=== PATIENT | female | born 1965 | race Caucasian/White ===

== ENCOUNTER 2017-09-09 18:12 | Emergency (ER) | payer OTHER ==
[~2017-09-09] VITALS: Ht 152.4 cm; Wt 83.9 kg
[2017-09-09 19:10] LABS: ABSOLUTE BASOPHIL COUNT 0 /CUMM (0.0-0.2); ABSOLUTE EOSINOPHIL COUNT 0.2 /CUMM (0.0-0.7); ABSOLUTE GRANULOCYTE CT 3.5 /CUMM (1.4-6.5); ABSOLUTE LYMPH COUNT 2.3 /CUMM (1.2-3.4); ABSOLUTE MONOCYTE COUNT 0.6 /CUMM (0.10-0.60); BASOPHIL % 0.5 % (0.0-2.0); EOSINOPHIL % 2.6 % (0-5); GRANULOCYTE % 53.2 % (42.2-75.2); HEMATOCRIT 39.9 % (37-47); MEAN CORPUSCULAR HGB 28.5 PG (27.0-31.0); MEAN CORPUSCULAR VOLUME 86.5 FL (81.0-99.0); MEAN PLATELET VOLUME 7.9 FL (7.4-10.4); PLATELET COUNT 251 /CUMM (130-400); RBC DISTRIBUTION WIDTH 13.6 % (11.5-14.5); RED BLOOD CELL CT 4.61 /CUMM (4.20-5.40); WHITE BLOOD CELL COUNT 6.7 /CUMM (4.8-10.8)
--- NOTE | 2017-09-09 20:05 | ED CARDIAC/CP/PALPITATIONS ---
History of Present Illness General Chief Complaint: Chest Pain Stated Complaint: HIGH BLOOD PRESSURE, CHEST PAIN Source: patient, old records Exam Limitations: no limitations Vital Signs & Intake/Output Vital Signs & Intake/Output Vital Signs Date Time Temp Pulse Resp B/P B/P Pulse O2 O2 Flow FiO2 Mean Ox Delivery Rate 09/090 97.2 52 18 141/77 97 Room Air 09/09 1900 97.6 09/09 1826 97.6 66 18 170/96 97 Room Air Room Air Allergies Coded Allergies: morphine (Intermediate, RASH AND PUFFY 09/09/17) Reconcile Medications Amlodipine Besylate 10 MG TABLET 1 TAB PO DAILY BP (Reported) Bupropion HCl (Bupropion XL) 150 MG TAB.ER.24H 1 TAB PO QAM MENTAL HEALTH ( Reported) Citalopram Hydrobromide (Citalopram HBr) 40 MG TABLET 1 TAB PO DAILY MENTAL HEALTH (Reported) Valsartan 320 MG TABLET 1 TAB PO DAILY BP (Reported) Triage Note: EKG DONE, PT TO ED WITH C/O HTN AND LEFT CHEST PAIN, DR CONDE HAS BEEN MONITORING BP SINCE TUESDAY, ALSO C/O HEADACHE. Triage Nurses Notes Reviewed? yes Onset: Abrupt Duration: hour(s): (6), constant Timing: recent history Quality/Severity: mild, aching Location: substernal Radiation: no radiation Activities at Onset: none Prior Chest Pain/Card Workup: no prior chest pain Nitro Today/Relief: no nitro taken today Aspirin Today: 81 mg x 1 Associated Symptoms: DENIES HPI: 51-year-old female history of hypertension anxiety presents to ER complaining since 1:30 today she's had a dull aching sensation 4 out of 10 to the left chest nonradiating. Patient is on amlodipine and valsartan for blood pressure symptoms came on while at work today at rest. She states while waiting room the symptoms had resolved however walking back to room 60 symptoms came back. She denies any associated shortness of breath or pain with inspiration. No abdominal pain nausea vomiting diarrhea dizziness lightheadedness. She took a baby aspirin prior to arrival. No family history of cigarette disease that she is aware she denies tobacco alcohol use. Past History Travel History Traveled to [place] past 21 day No Medical History Any Pertinent Medical History? 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 No Review of Systems Review of Systems Constitutional: Reports: see HPI. Comments Review of systems: See HPI, All other systems negative. Constitutional, no chills no fever, HEENT: no sore throat no congestion, Cardiovascular: chest pain , no palpitation Skin: no rashes, no change in skin Respiratory: No dyspnea no cough no sputum GI: No nausea no vomiting, no diarrhea, no bloating/constipation : No dysuria Muscle skeletal: No joint pain, no back pain, no neck pain, Neurologic: no headache Psych: stress Heme/endocrine: No bruising Immunology: No lymphadenopathy Physical Exam Physical Exam General Appearance: well developed/nourished, no apparent distress, alert, awake , comfortable Cardiovascular: regular rate/rhythm Comments: Well-developed well-nourished person in no acute distress HEENT: Normal EENT exam; PERRL, EOMI, HEAD is atraumatic. moist mucous membranes. Neck: Supple, no lymphadenopathy, normal range of motion Back: Nontender, no CVA tenderness. Full range of motion Cardiovascular: Regular rate and rhythms no murmurs rubs or gallops, normal JVP Respiratory: Chest nontender.There were no bony deformities, no asymmetry. No respiratory distress. Patient speaking in full complete sentences. Breath sounds clear to auscultation bilaterally: NO W/R/R Abdomen: Soft, nontender nondistended Extremity: No edema, full range of motion of extremities Neuro: Alert oriented x3, motor sensory normal, There were no obvious focal neurologic abnormalities. Skin: No appreciable rash on exposed skin, skin is warm and dry. Psych: Mood and affect is normal, memory and judgment is normal. Core Measures ACS in differential dx? Yes CVA/TIA Diagnosis No Sepsis Present: No Sepsis Focused Exam Completed? No Progress Differential Diagnosis: AMI, aortic dissection, atrial fibrillation, cholecystitis, CHF/pulm edema, musculoskeletal pain, myocarditis, pericarditis, pneumonia, pneumothorax, pulmonary embolism, unstable angina Plan of Care: Orders Procedure Date/time Status TROPONIN LEVEL 09/09 2129 Complete EKG 09/09 2129 Active Add-on Test (ER Only) 09/09 2104 Active EKG 09/09 2031 Active Telemetry/Associate Professor Of Biblical Studies 09/09 2017 Active D-DIMER 09/09 1829 Complete TROPONIN LEVEL 09/09 1814 Complete COMPREHENSIVE METABOLIC PANEL 09/09 1814 Complete CBC WITHOUT DIFFERENTIAL 09/09 1814 Complete EKG 09/09 1814 Active Laboratory Tests 09/09/17 2145: Troponin I < 0.01 09/09/171829: Anion Gap 13, Estimated GFR 59 L, BUN/Creatinine Ratio 20.0, Glucose 89, Calcium 9.5, Total Bilirubin 0.3, AST 20, ALT 31, Alkaline Phosphatase 136 H, Troponin I < 0.01, Total Protein 7.8, Albumin 4.5, Globulin 3.3, Albumin/ Globulin Ratio 1.4, D-Dimer High Sensitivty < 200, CBC w Diff NO MAN DIFF REQ, RBC 4.61, MCV 86.5, MCH 28.5, MCHC 33.0, RDW 13.6, MPV 7.9, Gran % 53.2, Lymphocytes % 35.3, Monocytes % 8.4, Eosinophils % 2.6, Basophils % 0.5, Absolute Granulocytes 3.5, Absolute Lymphocytes 2.3, Absolute Monocytes 0.6, Absolute Eosinophils 0.2, Absolute Basophils 0 Labs ordered old records. Patient medicated with nitroglycerin with no improvement in symptoms upon further evaluation she states the pain is now 7 out of 10 and repeat EKG shows no acute changes we'll continue to monitor case discussed with Dr. Aponte agrees with plan Patient medicated with a Percocet with improvement in symptoms On repeat evaluation I discussed with her at length all of her labs pending repeat troponin and d-dimer is negative. Patient reports total resolution of symptoms she is ambulatory around the emergency room with steady gait without redeveloping pain. 2250 and discussed with the patient at length all of her lab results she is remained asymptomatic here she is able toward on the emergency room without reproduction of symptoms I discussed her plan of care. She will follow up with cardiology on Tuesday return precautions were discussed at length Diagnostic Imaging: Viewed by Me: Radiology Read. Discussed w/RAD: Radiology Read. Radiology Impression: PATIENT: MARK FIGUEROA PRESENT AGE: 51 PATIENT ACCOUNT NO: [id number] : 66 LOCATION: [facility] ORDERING PHYSICIAN: Jose PARDO SERVICE DATE: 09/09/17 EXAM TYPE: RAD - XRY- PORTABLE CHEST XRAY EXAMINATION: XR PORTABLE CHEST CLINICAL INFORMATION: Chest pain. COMPARISON: None TECHNIQUE: Portable frontal view of the chest was obtained. FINDINGS: No significant abnormality is noted involving the heart, lungs, mediastinum, bony thorax or soft tissues. IMPRESSION: Unremarkable examination. Cardiac silhouette within normal limits DICTATED BY: Scottie Coronado MD DATE/TIME DICTATED:09/09/172037 RECEIVING SPECIALIST:SOFIA DATE/TIME TRANSCRIBED:09/09/172037 CONFIDENTIAL, DO NOT COPY WITHOUT APPROPRIATE AUTHORIZATION. <Electronically signed in Other Vendor System> SIGNED BY: Scottie Coronado MD 09/09/172043 Initial ED EKG: normal intervals, normal p-waves, normal QRS complex, normal sinus rhythm (60) Prior EKG: unchanged Repeat EKG: unchanged Rhythm Strip: normal sinus rhythm Departure Departure Time of Disposition: 2250 Disposition: HOME OR SELF CARE Condition: Stable Clinical Impression Primary Impression: Chest pain Referrals: Aidan PINEDO,Deyanira (PCP/Family) Janell PINEDO PHD,Maynor Merrill Additional Instructions: Follow up with commercial counsel dr ortiz on tuesday. continue taking your medication as prescribed. return with any concerns Departure Forms: Customer Survey General Discharge Information Critical Care Note Critical Care Note Critical Care Time: non-applicable
--- NOTE | 2017-09-09 20:44 | RADIOLOGY REPORT ---
EXAMINATION: XR PORTABLE CHEST CLINICAL INFORMATION: Chest pain. COMPARISON: None TECHNIQUE: Portable frontal view of the chest was obtained. FINDINGS: No significant abnormality is noted involving the heart, lungs, mediastinum, bony thorax or soft tissues. IMPRESSION: Unremarkable examination. Cardiac silhouette within normal limits
[2017-09-09] MEDS ORDERED: BUPROPION XL150 MG PO (21:06)
[2017-09-09] MEDS ORDERED: CITALOPRAM HBR40 MG PO (21:06)
[2017-09-09] MEDS ORDERED: AMLODIPINE BESY10 M1 PO (21:06)
[2017-09-09] MEDS ORDERED: VALSARTAN320 M1 PO (21:06)
[2017-09-09 21:50] VITALS: BP 141/77
== END 2017-09-09 22:56 ==
LOC: ERH 18:12
PROVIDERS: Physician Assistant Medical
DX: R07.9 Chest pain, unspecified (principal)
CPT/HCPCS: 71045; 93005; 93010; J3101; J3490

== ENCOUNTER 2017-09-17 15:13 | Emergency (ER) | payer OTHER ==
[~2017-09-17] VITALS: Ht 152.4 cm; Wt 84.4 kg
[~2017-09-17 15:13] MED LIST: AMLODIPINE BESY10 M1 PO; BUPROPION XL150 MG PO; CITALOPRAM HBR40 MG PO; VALSARTAN320 M1 PO
[2017-09-17 16:03] LABS: ABSOLUTE BASOPHIL COUNT 0 /CUMM (0.0-0.2); ABSOLUTE EOSINOPHIL COUNT 0.1 /CUMM (0.0-0.7); ABSOLUTE GRANULOCYTE CT 3.9 /CUMM (1.4-6.5); ABSOLUTE LYMPH COUNT 2.9 /CUMM (1.2-3.4); ABSOLUTE MONOCYTE COUNT 0.5 /CUMM (0.10-0.60); BASOPHIL % 0.5 % (0.0-2.0); EOSINOPHIL % 1.8 % (0-5); MEAN CORPUSCULAR HGB 29.5 PG (27.0-31.0); MEAN CORPUSCULAR HGB CONC 34.5 G/DL (33.0-37.0); MEAN CORPUSCULAR VOLUME 85.7 FL (81.0-99.0); MEAN PLATELET VOLUME 7.5 FL (7.4-10.4); PLATELET COUNT 257 /CUMM (130-400); RBC DISTRIBUTION WIDTH 13.6 % (11.5-14.5); RED BLOOD CELL CT 4.68 /CUMM (4.20-5.40); WHITE BLOOD CELL COUNT 7.6 /CUMM (4.8-10.8)
--- NOTE | 2017-09-17 18:10 | ED CARDIAC/CP/PALPITATIONS ---
History of Present Illness General Chief Complaint: Chest Pain Stated Complaint: CHEST PAIN, MIGRAINE, HIGH BLOOD PRESSURE Source: patient, old records Exam Limitations: no limitations Vital Signs & Intake/Output Vital Signs & Intake/Output Vital Signs Date Time Temp Pulse Resp B/P B/P Pulse O2 O2 Flow FiO2 Mean Ox Delivery Rate 09/17 1842 55 18 139/82 99 Room Air 09/17 1825 97.7 64 16 153/87 96 Room Air 09/17 1556 97.6 77 18 126/81 99 Room Air Allergies Coded Allergies: morphine (Intermediate, RASH AND PUFFY 09/09/17) Reconcile Medications Amlodipine Besylate 10 MG TABLET 1 TAB PO DAILY BP (Reported) Bupropion HCl (Bupropion XL) 150 MG TAB.ER.24H 1 TAB PO QAM MENTAL HEALTH ( Reported) Citalopram Hydrobromide (Citalopram HBr) 40 MG TABLET 1 TAB PO DAILY MENTAL HEALTH (Reported) Valsartan 320 MG TABLET 1 TAB PO DAILY BP (Reported) Triage Note: PT TO ED FOR INTERMITTENT CP THAT BEGAN TUESDAY NIGHT, PT STATING SHE USED A NITRO PATCH TODAY FOR FIRST TIME WITH NO RELIEF IN CP, PT REPORTING HEADACHE "THREE HOURS" AFTER NITRO PATCH. PT ALSO CONCERNED ABOUT HER BP, BP IN TRIAGE 126/81. PT REPORTING "CHEST PAIN IS A 6 OR A 7 NOW." DESCRIBES PAIN BURNING AND NO ASSOCIATED SOB, SEVILLA, NAUSEA, VOMITING. Triage Nurses Notes Reviewed? yes HPI: 51F PMH HTN, anxiety, GERD presenting with 24 hours of left sided chest pain. Seen in ED for chest pain and hypertension 1 week ago, ruled out and sent home, saw cardiology 4 days prior and was switched from Amlodipine to Nifedipine and started on Nitro patch for chest pain. Wore nitro patch for first time today, developed severe headache, with no change in chest pain, which is left sided, non-radiating, non-exertional, and not associated with any other symptoms such as dyspnea, diaphoresis, palpitations, or lightheadedness. Patch was removed 5 hours ago with resolution of headache. No family history of cardiac disease, non-smoker. Past History Travel History Traveled to [place] past 21 day No Medical History Any Pertinent Medical History? 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 No Review of Systems Review of Systems Constitutional: Reports: no symptoms. EENTM: Reports: no symptoms. Respiratory: Reports: no symptoms. Cardiovascular: Reports: no symptoms. GI: Reports: no symptoms. Genitourinary: Reports: no symptoms. Musculoskeletal: Reports: no symptoms. Skin: Reports: no symptoms. Neurological/Psychological: Reports: no symptoms. Hematologic/Endocrine: Reports: no symptoms. Immunologic/Allergic: Reports: no symptoms. All Other Systems: Reviewed and Negative Physical Exam Physical Exam General Appearance: well developed/nourished, no apparent distress Head: atraumatic, normal appearance Eyes: Bilateral: normal appearance. Ears, Nose, Throat: normal pharynx, normal ENT inspection, hearing grossly normal Neck: normal inspection, supple, full range of motion Respiratory: normal breath sounds, no respiratory distress, tenderness to left chest wall Cardiovascular: regular rate/rhythm Gastrointestinal: soft, non-tender Back: normal inspection, normal range of motion Extremities: normal inspection, normal range of motion Neurologic/Psych: awake, alert, oriented x 3, normal mood/affect Skin: intact, normal color, warm/dry Core Measures ACS in differential dx? Yes No ASA d/t Taken at home CVA/TIA Diagnosis No Sepsis Present: No Sepsis Focused Exam Completed? No Progress Differential Diagnosis: AMI, aortic dissection, atrial fibrillation, cholecystitis, CHF/pulm edema, costochondritis, hyperkalemia, hypovolemia, hyperthyroid, hyperventilation, intracranial hemorrhage, musculoskeletal pain, myocarditis, pancreatitis, pericarditis, pneumonia, pneumothorax, PSVT, pulmonary embolism, PUD/GERD, PVCs/PACs, respiratory failure, rib fracture, sepsis, unstable angina, V-fib/V-Tach, WPW syndrome Plan of Care: Orders Procedure Date/time Status TROPONIN LEVEL 09/17 1999 Active EKG 09/17 1999 Active TROPONIN LEVEL 09/17 1550 Complete COMPREHENSIVE METABOLIC PANEL 09/17 1550 Complete CBC WITHOUT DIFFERENTIAL 09/17 1550 Complete EKG 09/17 1526 Active Laboratory Tests 09/17/17 2005: Troponin I Pending 09/17/17 1600: Anion Gap 14, Estimated GFR > 60, BUN/Creatinine Ratio 23.8, Glucose 84, Calcium 9.5, Total Bilirubin 0.5, AST 24, ALT 29, Alkaline Phosphatase 133 H, Troponin I < 0.01, Total Protein 8.2, Albumin 4.5, Globulin 3.7, Albumin/Globulin Ratio 1.2, CBC w Diff NO MAN DIFF REQ, RBC 4.68, MCV 85.7, MCH 29.5, MCHC 34.5, RDW 13.6, MPV 7.5, Gran % 52.0, Lymphocytes % 38.5, Monocytes % 7.2, Eosinophils % 1.8, Basophils % 0.5, Absolute Granulocytes 3.9, Absolute Lymphocytes 2.9, Absolute Monocytes 0.5, Absolute Eosinophils 0.1, Absolute Basophils 0 Initial ED EKG: NSR, no ST T wave changes Repeat EKG: unchanged Departure Departure Disposition: HOME OR SELF CARE Condition: Stable Clinical Impression Primary Impression: Chest wall pain Referrals: Deyanira Bermudez MD (PCP/Family) Additional Instructions: Follow up with your per diem. Call him about using the nitro patch and explain your side effects. If you experiencing worsening or new symptoms, return to emergency department. Departure Forms: Customer Survey General Discharge Information Critical Care Note Critical Care Note Critical Care Time: 30-74 min
[2017-09-17 20:50] VITALS: BP 143/85
== END 2017-09-17 21:10 ==
LOC: ERH 15:13
PROVIDERS: Emergency Medicine
DX: R07.89 Other chest pain (principal); R51 Headache
CPT/HCPCS: 93005; 93010